=== PATIENT | female | born 2000 | race Caucasian/White ===

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

== ENCOUNTER 2022-06-11 18:51 | Emergency (ER) | payer MEDICAID ==
[2022-06-11] MEDS ORDERED: Sodium Chloride 0.9% 10 ML Syringe FLUSH PRN (19:07)
[2022-06-11 19:36] VITALS: BP 104/72; PULSE 72
[2022-06-11 20:02] LABS: METHAMPHETAMINES,URINE POSITIVE (NEGATIVE)
[2022-06-11 20:03] LABS: AMPHETAMINES,URINE POSITIVE (NEGATIVE); BARBITURATES,URINE NEGATIVE (NEGATIVE); BENZODIAZEPINE,URINE NEGATIVE (NEGATIVE); MDMA (ECSTASY), URINE NEGATIVE (NEGATIVE); METHADONE,URINE NEGATIVE (NEGATIVE); OPIATES,URINE NEGATIVE (NEGATIVE); OXYCODONE,URINE NEGATIVE (NEGATIVE); PHENCYCLIDINE,URINE NEGATIVE (NEGATIVE); TCA,URINE NEGATIVE (NEGATIVE)
[2022-06-11 20:04] LABS: PTT,PARTIAL THROMBOPLSTIN TIME 25.2 SEC (22.0-34.0)
[2022-06-11 20:08] LABS: ANION GAP 13.8 mEq/L (7-13); CHLORIDE,CL 104 mmol/L (98-107); ESTIMATED GFR 128 mL/min (>=60); SODIUM,NA 139 mmol/L (136-145)
[2022-06-11] MEDS ORDERED: Acetaminophen 500 MG Tab PO ONE (20:42)
[2022-06-11] MEDS ORDERED: Nitrofurantoin Monohydrate/Macrocrystalline 100 MG Cap PO ONE (20:42)
== END 2022-06-11 21:02 | disposition home or self-care (01) ==
LOC: DL.ED 18:51
DX: S06.9X9A Unspecified intracranial injury with loss of consciousness of unspecified duration, initial encounter (principal); S05.11XA Contusion of eyeball and orbital tissues, right eye, initial encounter; N39.0 Urinary tract infection, site not specified; F15.10 Other stimulant abuse, uncomplicated; F12.90 Cannabis use, unspecified, uncomplicated; Z72.0 Tobacco use; W18.09XA Striking against other object with subsequent fall, initial encounter
CPT/HCPCS: 36415; 70450; 70486; 72125; 80053; 80305; 80307; 81001; 81025; 83605; 83735; 84145; 84484; 85025; 85610; 85730; 86140; 87086; 93005; 93010; 99284; 99285; A9270

== ENCOUNTER 2022-06-13 07:36 | Emergency (ER) | payer MEDICAID ==
[2022-06-13] MEDS ORDERED: Sodium Chloride 0.9% 10 ML Syringe FLUSH PRN (07:39)
[2022-06-13] MEDS ORDERED: Sodium Chloride 0.9% 1,000 ML IV ONE (07:40)
[2022-06-13] MEDS ORDERED: Ondansetron 4 MG/2 ML SDV IV ONE (07:40)
[2022-06-13] MEDS ORDERED: Pantoprazole 40 MG Vial IVPUSH ONE (07:41)
[2022-06-13] MEDS ORDERED: Pantoprazole 40 MG in Sodium Chloride 0.9% 100 ML IV SCH (07:42)
[2022-06-13 07:45] VITALS: BP 122/79; PULSE 74
[2022-06-13 08:08] LABS: AMPHETAMINES,URINE POSITIVE (NEGATIVE); BARBITURATES,URINE NEGATIVE (NEGATIVE); BENZODIAZEPINE,URINE NEGATIVE (NEGATIVE); MDMA (ECSTASY), URINE NEGATIVE (NEGATIVE); METHADONE,URINE NEGATIVE (NEGATIVE); METHAMPHETAMINES,URINE POSITIVE (NEGATIVE); OPIATES,URINE NEGATIVE (NEGATIVE); OXYCODONE,URINE NEGATIVE (NEGATIVE); PHENCYCLIDINE,URINE NEGATIVE (NEGATIVE); TCA,URINE NEGATIVE (NEGATIVE)
[2022-06-13 08:16] LABS: ANION GAP 8.9 mEq/L (7-13); CHLORIDE,CL 98 mmol/L (98-107); SODIUM,NA 134 mmol/L (136-145)
[2022-06-13] MEDS ORDERED: cefTRIAXone 1 GM Vial IVPUSH ONE (08:17)
[2022-06-13] MEDS ORDERED: metroNIDAZOLE/Normal Saline 500 MG in Premix Bag 1 BAG IV ONE (08:17)
[2022-06-13 08:22] LABS: ESTIMATED GFR 128 mL/min (>=60); PTT,PARTIAL THROMBOPLSTIN TIME 26.1 SEC (22.0-34.0)
[2022-06-13] MEDS ORDERED: NS with KCl 40mEq 1,000 ML IV SCH (08:30)
== END 2022-06-13 11:35 | disposition home or self-care (01) ==
LOC: DL.ED 07:36
DX: K22.6 Gastro-esophageal laceration-hemorrhage syndrome (principal); E87.6 Hypokalemia; F15.10 Other stimulant abuse, uncomplicated; F17.210 Nicotine dependence, cigarettes, uncomplicated
CPT/HCPCS: 36415; 80053; 80305-QW; 80307; 81001; 81025; 82150; 83690; 85025; 85610; 85730; 87086; 87491; 87563; 87591; 96365; 96366; 96368; 96375; 96376; 99283; 99284-25; C9113; J0696; J2405; J3480; J3490; J7030

== ENCOUNTER 2023-09-19 15:56 | Inpatient (IN) | payer MEDICAID ==
[2023-09-19 17:04] LABS: HEMATOCRIT 33.2 % (37.0-47.0); HEMOGLOBIN 10.9 g/dL (12.0-16.0); MEAN CORPUSCULAR HEMOGLOBIN 27.9 pg (27.0-34.0); MEAN CORPUSCULAR HGB CONC 32.8 g/dL (33.0-35.0); MEAN CORPUSCULAR VOLUME 84.9 fL (80-100); RED BLOOD CELL COUNT 3.91 10^6/uL (4.2-5.4); WHITE BLOOD CELL COUNT,WBC 7.5 10^3/uL (5.0-10.0)
[2023-09-19 17:17] LABS: APPEARANCE,URINE CLEAR (CLEAR); BILIRUBIN,URINE NEGATIVE (NEGATIVE); COLOR,URINE YELLOW (YELLOW); GLUCOSE,URINE NEGATIVE (NEGATIVE); KETONES,URINE NEGATIVE (NEGATIVE); LEUKOCYTE ESTERASE,URINE NEGATIVE (NEGATIVE); NITRITE,URINE NEGATIVE (NEGATIVE); OCCULT BLOOD,URINE MODERATE (NEGATIVE); PROTEIN,URINE 30 (NEGATIVE); UROBILINOGEN,URINE 0.2 mg/dL (0.2-1.0)
[2023-09-19 17:23] LABS: CREATININE 0.7 mg/dL (0.55-1.02); EST CRCL DRUG DOSING (CG) 95.93 mL/min
[2023-09-19 17:30] LABS: CREATININE,URINE RAND 103.66 mg/dL (No establ ref range); PROTEIN CREATININE RATIO,URINE 559.5 mg/g (<150.0)
[2023-09-19] MEDS ORDERED: Misoprostol 400 MCG (4 X 100 MCG TAB) RECTAL PRN (17:40)
[2023-09-19] MEDS ORDERED: Tranexamic Acid 1,000 MG in Sodium Chloride 0.9% 100 ML IV PRN (17:40)
[2023-09-19] MEDS ORDERED: Carboprost Tromethamine 250 MCG/1 ML Amp IM PRN (17:40)
[2023-09-19] MEDS ORDERED: Methylergonovine 0.2 MG/1 ML Amp IM PRN (17:40)
[2023-09-19] MEDS ORDERED: Sodium Chloride 0.9% 10 ML Syringe FLUSH PRN (17:40)
[2023-09-19] MEDS: Lactated Ringers 1,000 ML IV SCH (20:46)
[2023-09-19] MEDS ORDERED: fentaNYL 100 MCG/2 ML SDV ONE (20:49)
[2023-09-19] MEDS ORDERED: Bupivacaine 0.25% 10 ML SDV ONE (20:49)
[2023-09-19] MEDS ORDERED: Phenylephrine HCl In 0.9% NaCl 1 MG/10 ML Syringe IVPUSH PRN (21:13)
[2023-09-19] MEDS ORDERED: ePHEDrine 50 MG/ML SDV IVPUSH PRN (21:13)
[2023-09-19] MEDS ORDERED: Ropivacaine 200 MG in Premix Bag 1 BAG EPIDUR SCH (21:15)
[2023-09-19] MEDS: diphenhydrAMINE 50 MG/ML SDV IVPUSH ONE (22:31)
[2023-09-19] MEDS: Oxytocin/Normal Saline 30 UNIT/500 ML BAG IV SCH (22:37)
[2023-09-19 23:47] LABS: INR 0.8 (0.9-1.2); PROTHROMBIN TIME 8.8 SEC (9.0-12.0)
[2023-09-20] MEDS: Sodium Chloride 0.9% 1,000 ML SCH (01:46)
[2023-09-20] MEDS: Ondansetron 4 MG/2 ML SDV IVPUSH PRN (02:22)
[2023-09-20] MEDS: Lactated Ringers 1,000 ML IV ONE (02:40)
[2023-09-20] MEDS: Acetaminophen 325 MG Tab PO PRN (04:43)
[2023-09-20 06:13] LABS: AMPHETAMINES,URINE POSITIVE (NEGATIVE); BARBITURATES,URINE NEGATIVE (NEGATIVE); BENZODIAZEPINE,URINE NEGATIVE (NEGATIVE); MDMA (ECSTASY), URINE NEGATIVE (NEGATIVE); METHADONE,URINE NEGATIVE (NEGATIVE); METHAMPHETAMINES,URINE POSITIVE (NEGATIVE); OPIATES,URINE NEGATIVE (NEGATIVE); OXYCODONE,URINE NEGATIVE (NEGATIVE); PHENCYCLIDINE,URINE NEGATIVE (NEGATIVE); TCA,URINE NEGATIVE (NEGATIVE)
[2023-09-20] MEDS ORDERED: Hydrocortisone 2.5% Crm 30 GM Tube TOP PRN (11:12)
[2023-09-20] MEDS ORDERED: Oxytocin 10 Units/1 ML SDV IM PRN (11:12)
[2023-09-20] MEDS ORDERED: Sodium Chloride 0.9% 10 ML Syringe FLUSH PRN (11:12)
[2023-09-20] MEDS ORDERED: Simethicone 80 MG Tab.Chew PO PRN (11:12)
[2023-09-20] MEDS: Witch Hazel Medicated Pads 100/Jar TOP PRN (13:31)
[2023-09-20] MEDS: Benzocaine/Menthol 20%-0.5% Spray 78 GM Cannister TOP PRN (13:31)
[2023-09-20] MEDS: Ibuprofen 800 MG Tab PO SCH ×2 (13:38→14:26)
[2023-09-20] MEDS ORDERED: Ibuprofen 800 MG Tab PO SCH (13:45)
[2023-09-20] MEDS: Lidocaine 1% 30 ML SDV INJECT ONE (14:25)
[2023-09-20] MEDS: Docusate Sodium 100 MG Cap PO PRN (19:25)
[2023-09-21 06:56] LABS: HEMATOCRIT 28.2 % (37.0-47.0); HEMOGLOBIN 8.9 g/dL (12.0-16.0); MEAN CORPUSCULAR HEMOGLOBIN 27.4 pg (27.0-34.0); MEAN CORPUSCULAR HGB CONC 31.6 g/dL (33.0-35.0); MEAN CORPUSCULAR VOLUME 86.8 fL (80-100); RED BLOOD CELL COUNT 3.25 10^6/uL (4.2-5.4); WHITE BLOOD CELL COUNT,WBC 13.6 10^3/uL (5.0-10.0)
[2023-09-21] MEDS: Prenatal Multivitamin with Calcium/Folic Acid/Iron Tab PO SCH (09:39)
[2023-09-21] MEDS: Ferrous Sulfate 325 MG Tab PO SCH (09:39)
[2023-09-22 13:39] VITALS: BP 122/74; PULSE 82
[2023-09-23 11:47] LABS: C.TRACHOMATIS BY TMA Negative (Negative); N.GONORRHOEAE BY TMA Negative (Negative); SOURCE GENITAL
== END 2023-09-22 11:45 | disposition home or self-care (01) | DRG 806 ==
LOC: DL.OBCHECK 15:56 → DL.OB 17:40 → OBSVTOIN 09-20 10:40
PROVIDERS: ADMIT Family Medicine; ATTEND Family Medicine
PROC: 10D07Z6 Extraction of Products of Conception, Vacuum, Via Natural or Artificial Opening (ICD-10-PCS; principal; 2023-09-20)
PROC: 0KQM0ZZ Repair Perineum Muscle, Open Approach (ICD-10-PCS; 2023-09-20)
PROC: 10907ZC Drainage of Amniotic Fluid, Therapeutic from Products of Conception, Via Natural or Artificial Opening (ICD-10-PCS; 2023-09-20)
PROC: 10H07YZ Insertion of Other Device into Products of Conception, Via Natural or Artificial Opening (ICD-10-PCS; 2023-09-20)
PROC: 3E0R3BZ Introduction of Anesthetic Agent into Spinal Canal, Percutaneous Approach (ICD-10-PCS; 2023-09-20)
PROC: 00HU33Z Insertion of Infusion Device into Spinal Canal, Percutaneous Approach (ICD-10-PCS; 2023-09-20)
DX: O99.02 Anemia complicating childbirth (principal); D62 Acute posthemorrhagic anemia; Z37.0 Single live birth; O99.324 Drug use complicating childbirth; O14.04 Mild to moderate pre-eclampsia, complicating childbirth; F15.90 Other stimulant use, unspecified, uncomplicated; O76 Abnormality in fetal heart rate and rhythm complicating labor and delivery; O69.81X0 Labor and delivery complicated by cord around neck, without compression, not applicable or unspecified; O70.1 Second degree perineal laceration during delivery; Z3A.38 38 weeks gestation of pregnancy
CPT/HCPCS: 36415; 51702; 59409; 80305-QW; 81003; 82565; 82570; 83615; 84156; 84450; 84460; 84520; 84550; 85027; 85610; 86592; 87081; 87210; 87491; 87591; A9270-GY; C1729; J1200; J2405; J2590; J7030; J7120